=== PATIENT | female | born 1970 | race Hispanic/Latino ===

== ENCOUNTER 2018-07-02 23:45 | Emergency (ER) | payer MEDICAID ==
[2018-07-03] MEDS ORDERED: D50W (25GM) Syringe IV ONE ×2 (01:34→03:25)
--- NOTE | 2018-07-03 01:40 | Emergency Department Report ---
ED General Adult HPI - General Chief complaint: Hyperglycemia Stated complaint: HIGH BLOOD GLUCOSE Time Seen by Provider: 07/03/18 01:28 Source: patient Mode of arrival: Ambulatory Limitations: No Limitations - History of Present Illness Initial comments: Patient is 48 years old female with history of hypertension, diabetes and asthma. Patient presented to the ER stating that she check her blood sugar and it was 400 and according to her sliding scale she took 50 units of NovoLog. Patient now is shaking with a blood sugar of 43. Patient immediately started on dextrose 50 and given a meal tray and started on D10 1 50 mL per hour. Patient denied any chest pain, shortness of breath, weakness numbness or tingling sensation. Severity scale (0 -10): 0 - Related Data Previous Rx's Medication Instructions Recorded Last Taken Type Ciprofloxacin HCl [Ciprofloxacin 500 mg PO Q12H #14 tab 07/03/18 Unknown Rx TAB] Allergies Allergy/AdvReac Type Severity Reaction Status Date / Time bupropion [From Wellbutrin] Allergy Rash Verified 07/03/18 00:00 insulin lispro Allergy Vomiting Verified 07/03/18 00:00 [From Humalog Mix] insulin lispro protamine Allergy Vomiting Verified 07/03/18 00:00 [From Humalog Mix] Sulfa (Sulfonamide Allergy Hives Verified 07/03/18 00:00 Antibiotics) ED Review of Systems ROS: Stated complaint: HIGH BLOOD GLUCOSE Other details as noted in HPI Comment: All other systems reviewed and negative Constitutional: denies: chills, fever Cardiovascular: denies: chest pain, palpitations, dyspnea on exertion Gastrointestinal: denies: abdominal pain, nausea, vomiting Musculoskeletal: denies: back pain ED Past Medical Hx - Past Medical History Previous Medical History?: Yes Hx Hypertension: Yes Hx Diabetes: Yes Hx Psychiatric Treatment: Yes (schizophenia, 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 tubal ligation 1993 - Social History Smoking Status: Current Every Day Smoker Substance Use Type: None - Medications Home Medications: Home Medications Medication Instructions Recorded Confirmed Last Taken Type Ciprofloxacin HCl [Ciprofloxacin 500 mg PO Q12H #14 tab 07/03/18 Unknown Rx TAB] ED Physical Exam - General Limitations: No Limitations General appearance: alert, in no apparent distress - Head Head exam: Present: atraumatic, normocephalic, normal inspection - Eye Eye exam: Present: normal appearance - ENT ENT exam: Present: normal exam, normal orophraynx - Neck Neck exam: Present: normal inspection, full ROM. Absent: tenderness, meningismus - Respiratory Respiratory exam: Present: normal lung sounds bilaterally - Cardiovascular Cardiovascular Exam: Present: regular rate, normal rhythm, normal heart sounds - GI/Abdominal GI/Abdominal exam: Present: soft, normal bowel sounds. Absent: distended, tenderness, guarding, rebound, rigid - Extremities Exam Extremities exam: Present: normal inspection, full ROM, normal capillary refill - Back Exam Back exam: Present: normal inspection, full ROM. Absent: tenderness, CVA tenderness (R), CVA tenderness (L), muscle spasm, paraspinal tenderness, vertebral tenderness - Neurological Exam Neurological exam: Present: alert, oriented X3, CN II-XII intact, normal gait, reflexes normal - Skin Skin exam: Present: warm, intact, normal color ED Course Vital Signs 07/02/18 07/02/18 07/03/18 23:51 23:54 01:30 Temperature 98.4 F 98.4 F Pulse Rate 90 90 Respiratory 16 16 17 Rate Blood Pressure 141/85 Blood Pressure 141/85 [Left] O2 Sat by Pulse 96 96 95 Oximetry 07/03/18 07/03/18 07/03/18 02:01 03:01 04:00 Temperature Pulse Rate 80 75 76 Respiratory 14 13 13 Rate Blood Pressure 117/67 109/65 105/60 Blood Pressure [Left] O2 Sat by Pulse 93 96 94 Oximetry 07/03/18 07/03/18 07/03/18 05:00 06:00 07:00 Temperature Pulse Rate 72 81 74 Respiratory 12 16 11 L Rate Blood Pressure 128/69 130/78 146/88 Blood Pressure [Left] O2 Sat by Pulse 97 95 96 Oximetry 07/03/18 07/03/18 07/03/18 07:14 08:00 09:00 Temperature 97.8 F Pulse Rate 76 73 Respiratory 11 L 11 L Rate Blood Pressure 148/88 139/92 Blood Pressure [Left] O2 Sat by Pulse 95 96 Oximetry ED Medical Decision Making - Lab Data Result diagrams: 07/03/18 01:58 07/03/18 01:58 - Medical Decision Making Patient is 48 years old female with history of hypertension, diabetes and asthma. Patient presented to the ER stating that she check her blood sugar and it was 400 and according to her sliding scale she took 50 units of NovoLog. Patient now is shaking with a blood sugar of 43. Patient immediately started on dextrose 50 and given a meal tray and started on D10 1 50 mL per hour. Patient denied any chest pain, shortness of breath, weakness numbness or tingling sensation. Patient observed and monitored in the ER with serial blood glucose monitoring. Patient remained stable and discharged home in stable condition and normal blood glucose. patient given instruction for Insulin sliding scale. Patient advised to follow up with her PCP tomorrow. Critical Care Time: Yes Critical care time in (mins) excluding proc time.: 30 Critical care attestation.: If time is entered above; I have spent that time in minutes in the direct care of this critically ill patient, excluding procedure time. ED Disposition Clinical Impression: Hypoglycemia, UTI (urinary tract infection) Disposition: DC- TO HOME OR SELFCARE Is pt being admited?: No Condition: Stable Instructions: Urinary Tract Infection in Women (ED), Diabetic Hypoglycemia (ED) Prescriptions: Ciprofloxacin HCl [Ciprofloxacin TAB] 500 mg PO Q12H #14 tab Referrals: BJ RESENDEZ MD [Primary Care Provider] - 3-5 Days
[2018-07-03] MEDS ORDERED: D10W 1,000 ML IV SCH (02:00)
[2018-07-03 02:20] LABS: Basophils # (Auto) 0.1 K/mm3 (0.0-0.1); Basophils % (Auto) 0.5 % (0.0-1.8); Eosinophils # (Auto) 0.3 K/mm3 (0.0-0.4); Hematocrit 35.5 % (30.3-42.9); Hemoglobin 12.1 gm/dl (10.1-14.3); Lymphocytes # (Auto) 3.3 K/mm3 (1.2-5.4); Lymphocytes % (Auto) 31.2 % (13.4-35.0); Mean Corpuscular HGB Conc 34 % (30-34); Mean Corpuscular Volume 85 fl (79-97); Monocytes # (Auto) 0.7 K/mm3 (0.0-0.8); Monocytes % (Auto) 6.4 % (0.0-7.3); Platelet Count 244 K/mm3 (140-440); Red Blood Count 4.17 M/mm3 (3.65-5.03); Red Cell Distribution Width 15.5 % (13.2-15.2)
[2018-07-03 02:33] LABS: BUN/Creatinine Ratio 15; Blood Urea Nitrogen 15 mg/dL (7-17); Calcium 9.1 mg/dL (8.4-10.2)
[2018-07-03 02:36] LABS: Alanine Aminotransferase 20 units/L (7-56); Albumin 3.7 g/dL (3.9-5)
[2018-07-03 02:39] LABS: Bilirubin,Direct < 0.2 mg/dL (0-0.2)
[2018-07-03 04:04] LABS: Bacteria,Urine 1+ /HPF (Negative); Bilirubin,Urine NEG (Negative); Blood,Urine NEG (Negative); Color,Urine Yellow (Yellow); Mucus,Urine FEW /HPF; Protein,Urine <15 mg/dL mg/dL (Negative); Urobilinogen,Urine < 2.0 mg/dL (<2.0)
[2018-07-03] MEDS ORDERED: ZOFRAN ONE (05:55)
[2018-07-03] MEDS ORDERED: ZOFRAN IV ONE (06:08)
[2018-07-03 09:17] VITALS: BP 139/92
== END 2018-07-03 09:16 | disposition home or self-care (01) ==
LOC: ED 23:45
DX: E11.65 Type 2 diabetes mellitus with hyperglycemia (principal); N39.0 Urinary tract infection, site not specified; I10 Essential (primary) hypertension; F32.9 Major depressive disorder, single episode, unspecified; E03.9 Hypothyroidism, unspecified; F17.200 Nicotine dependence, unspecified, uncomplicated; Z98.51 Tubal ligation status; Z79.4 Long term (current) use of insulin; Z88.8 Allergy status to other drugs, medicaments and biological substances; Z88.2 Allergy status to sulfonamides
CPT/HCPCS: 36415; 80048; 80076; 81001; 82962; 85025; 96365; 96366; 96375; 96376; 99284; J2405

== ENCOUNTER 2018-07-15 12:27 | Emergency (ER) | payer MEDICAID ==
[2018-07-15 13:14] VITALS: BP 143/83
--- NOTE | 2018-07-15 13:18 | Emergency Department Report ---
Blank Doc - Documentation Documentation: 48 y o female presents with cc of lower abd redness and burning x 2 days denies f/c/n/v erythematous under belly fold ACC eval
--- NOTE | 2018-07-15 14:10 | Emergency Department Report ---
ED Rash HPI - HPI Chief Complaint: Skin Rash Stated Complaint: YEAST INFECTION Time Seen by Provider: 07/15/18 13:13 Duration: 3 Days Location: Abdomen Suspected Cause: Other Rash Symptoms: Yes Itching, No Facial Swelling, No Tongue/Oral Swelling, No Breathing Difficulties, No Fever, No Myalgias Severity: moderate Other History: hx recurrent intertrigo. 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 tubal ligation 1993 - Social History Smoking Status: Current Every Day Smoker Substance Use Type: None - Medications Home Medications: Home Medications Medication Instructions Recorded Confirmed Last Taken Type Ciprofloxacin HCl [Ciprofloxacin 500 mg PO Q12H #14 tab 07/03/18 Unknown Rx TAB] Fluconazole [Diflucan TAB] 150 mg PO 1XW #4 tablet 07/15/18 Unknown Rx Ketoconazole 2% [Nizoral] 1 applicatio TP QDAY #120 g 07/15/18 Unknown Rx Rash Exam - Exam General: Vital signs noted. No distress. Alert and acting appropriately. HEENT: No Tongue Edema, No Uvular Edema Lungs: Yes Good Air Exchange, No Wheezes Heart: Yes Regular, No Murmur Skin: Yes Other (intertrigo within skin folds of abdomen/groin) ED Course Vital Signs 07/15/18 13:12 Temperature 97.8 F Pulse Rate 82 Respiratory 20 Rate Blood Pressure 143/83 [Right] O2 Sat by Pulse 98 Oximetry ED Medical Decision Making - Medical Decision Making intertrigo states she usually needs oral and topical combo for cure will give rx, fu pcp - Differential Diagnosis intertrigo, cellulitis, dermatitis Critical care attestation.: If time is entered above; I have spent that time in minutes in the direct care of this critically ill patient, excluding procedure time. ED Disposition Clinical Impression: Intertrigo Disposition: DC-01 TO HOME OR SELFCARE Is pt being admited?: No Condition: Good Instructions: Vulvovaginal Candidiasis (ED) Prescriptions: Fluconazole [Diflucan TAB] 150 mg PO 1XW #4 tablet Ketoconazole 2% [Nizoral] 1 applicatio TP QDAY #120 g Referrals: BJ RESENDEZ MD [Primary Care Provider] - 3-5 Days Time of Disposition: 14:19
== END 2018-07-15 14:30 | disposition home or self-care (01) ==
LOC: ED 12:27
DX: L30.4 Erythema intertrigo (principal); I10 Essential (primary) hypertension; E11.9 Type 2 diabetes mellitus without complications; F20.9 Schizophrenia, unspecified; F17.200 Nicotine dependence, unspecified, uncomplicated; E05.90 Thyrotoxicosis, unspecified without thyrotoxic crisis or storm; Z98.51 Tubal ligation status; Z88.2 Allergy status to sulfonamides; Z88.8 Allergy status to other drugs, medicaments and biological substances
CPT/HCPCS: 99283